=== PATIENT | female | born 1950 | race Caucasian/White ===

== ENCOUNTER 2020-04-07 07:04 | Outpatient (REF) | payer MEDICARE, SELFPAY | END 2020-04-07 07:05 | disposition home or self-care (01) | LOC: HO.LAB 07:04 | PROVIDERS: Visit Provider Internal Medicine | DX: Z20.822 Contact with and (suspected) exposure to COVID-19 (principal) | CPT/HCPCS: 36415; C9803; U0003 ==

== ENCOUNTER → 2022-07-06 12:47 | Outpatient (BNVA) | payer MEDICARE, SELFPAY | PROVIDERS: PCP Internal Medicine; Visit Provider Psychiatry & Neurology Neurology | DX: R41.89 Other symptoms and signs involving cognitive functions and awareness (principal); R46.89 Other symptoms and signs involving appearance and behavior; R47.9 Unspecified speech disturbances | CPT/HCPCS: 99202 ==

== ENCOUNTER 2022-08-20 12:42 | Outpatient (RCR) | payer MEDICARE, SELFPAY ==
--- NOTE | 2022-08-24 11:53 | MHC.SP.ADU ---
Referring provider: Mary Blackwood MD Reason for Referral: Cognitive Communication Evaluation Type of Treatment: 30871 Evaluation Speech Sound Production WITH Language Date of Plan of Treatment: 08/20/22 Onset of Symptoms/Illness: 07/10/22 Date Treatment Started: 08/24/22 Medical Diagnosis: R47.9 R41.89 R46.89 F80.1 Primary Speech Language Diagnosis: R41.841 Cognitive communication disorder Secondary Speech Language Diagnosis: History Chloeis a 72 year-old partially retired Female referred by her Neurologist with concern over memory loss and word finding issues. Pt reports this has been a slowly progressing process for the last 6 years or so. Pertinent PMH includes 2 transient ischemic attacks one in 1987, one in 2018. She is medicated for Manic Bipolar Disorder and followed by a psychiatrist. She has 4 children and 8 grandchildren who live close to her. 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 She is concerned that her memory issue will get in the way of her ability to teach the class. She is otherwise independent in self and home care activities. She reports that she collects antiques, and that her house is quite crowded because of it. She states, there are little paths you can use to get around things . Medical History: Stroke Recent Hospitalizations: No Respiratory Needs: Room Air Patient Orientation: Alert & Oriented x 4 Social History: Employment Status: Self-Employed Highest level of education obtained: Completed High School/GED Current Living Situation: Pt lives at home with family close by. Past Speech Language Therapy: None. Other Therapies Seen in Current Calendar Year: None Reported Speech, Language, Cognition difficulties: Understanding Attention Memory Cognition Speaking Problem Solving Quality of Life: She reports anxiety over her memory problems, but is otherwise still independent. Patient Stated Goal of Speech-Language Therapy: Cognitive stimulation therapy, Compensatory strategies. Assessment Tests of Cognition: RBANS Clinical Impression: Impaired Observations: Chloe completed the RBANS - Update, Form A. Her scores are reported as follows: R-BANS Update 1.) List Learning: -- Scaled Score: 4 2.) Story Memory: -- Scaled Score: 6 3.) Figure/Copy: -- Scaled Score: 5 4.) Line Orientation: -- Percentile Group: 3-9 5.) Picture Naming: -- Percentile Group: 3-9 6.) Semantic Fluency: -- Scaled Score: 4 7.) Digit Span: -- Scaled Score: 4 8.) Coding: -- Scaled Score: 3 9.) List Recall: -- Percentile Group: 3-9 10.) List Recognition: -- Percentile Group: 26-50 11.) Story Recall: -- Scaled Score: 6 12.) Figure Recall: -- Scaled Score: 6 I.) Immediate Memory: -- Index Score: 73 II.) Visuospatial/Constructional: -- Index Score: 69 III.) Language: -- Index Score: 68 IV.) Attention: -- Index Score: 56 V.) Delayed Memory: -- Index Score: 87 Total Scale Score: 63 (1st %ile) Unfortunately, these scores are well below average as compared to her age-matched peers. They are consistent with her reported symptoms of difficulty with memory and attention. This assessment would warranted a more complete Neuropsychological Battery, however the Neuropsychologist she has been followed by no longer takes her insurance. Process analysis showed some perseverative patterns when switching between subtests. For instance, when switching from List Learning to Story Recall she began listing single words from the story rather than telling it back in a narrative format. She was prompted to use the story format for her second trial and recalled twice as many items from the story. Chloe also completed the Multifactorial Memory Questionnaire (MMQ) with the following results: Satisfaction: T=26, 0.8th %ile (Significantly Below Average) Ability: T=35, 7th %ile (Significantly Below Average) Strategy: T=37, 10th %ile (Below Average) Her responses demonstrate that she is concerned about her memory, is not confident in her current abilities, and is needing to use increased supports to achieve her goals. Impressions and Recommendations Summary: Chloe demonstrated below average skills in Language and Visuospatial tasks. Difficulty with processing and attention have been negatively impacting her memory and safety. Her completion of a memory questionnaire demonstrated that these issues are also negatively impacting her quality of life and are increasing stress demands on her. Impact on Daily Function/Activity Limitations: Daily Activities: Moderate Interpersonal Interactions: Moderate Education: None Employment: Moderate Community: Moderate Prognosis for Improvement: Good Comment: Despite the progressive nature of her suspected diagnosis of dementia, her prognosis for improvement is good with increased Family support. Recommendation for Speech Therapy: Outpatient Speech Therapy Frequency/Duration: 1 x week x 12 weeks Date Range for Service Requested: 08/20/22 - 11/15/22 Time to Reassess: 3 months Range Mechanic Goals: LTG: Pt will demonstrate back use of compensatory strategies to be successful in novel, complex tasks requiring problem solving and alternating attention. Short Term Goals: Goal # : STG1: Pt will verbalize back the 5 attention types and correctly identify different layers of attention required to complete activities of daily living in >80% of opportunities with fading cues. Goal Status: New Goal Goal# : STG2: Pt will complete mazes of increasing complexity with >80% accuracy and fading cues: Goal Status: New Goal Goal # : STG3: Pt/Family will complete weekly HEP assignments with >80% accuracy to facilitate carryover of trained skills at home and in the community. Goal Status: Recommended Referrals to be Discussed with Primary Care Provider: Neurology Neuropsychological Eval Follow-up with referring provider at next scheduled visit. Patient Education: Completed: Yes Patient/Caregiver Education: Described Results of Evaluation Patient expressed understanding of evaluation Patient agrees with goals and treatment plan Patient requires further education on strategies [employer] Technician Clinican/Clinical Fellow: No Supervisory Statement: N/A Speech Language Pathologist: Geoff May M.A., CCC-[employer]IRCRAFT HYDRAULIC EQUIPMENT MECHANIC
== END 2022-09-03 11:48 | disposition still patient (30) ==
LOC: HO.SH 12:42
PROVIDERS: Visit Provider Psychiatry & Neurology Neurology
DX: F80.1 Expressive language disorder (principal); R41.89 Other symptoms and signs involving cognitive functions and awareness
CPT/HCPCS: 92523

== ENCOUNTER 2022-10-17 14:02 | Outpatient (AMB) | payer MEDICARE, SELFPAY ==
--- NOTE | 2022-10-17 14:04 | A.OFFVIS_ITS ---
Intake Vital Signs 10/17/22 14:07 BP 128/70 Blood Pressure Location Rt brachial Position Sitting Pulse 72 Pulse Source Pulse Oximeter Pulse Oximetry (%) 95 Oxygen Delivery Method Room Air Intake Visit Reasons: 3m follow up DEMENTIA-CONFIRMED Intake Note: Patient presents for 3 month follow up dementia Allergies Penicillins Allergy (Severe, Verified 10/17/22 14:05) Rash Medication List - Last Reconciled 10/17/22 by Mary Blackwood MD aspirin 81 mg PO DAILY diclofenac sodium 1% 4 grams topical BID memantine 14 mg PO DAILY nortriptyline mg PO quetiapine 200 mg PO DAILY simvastatin 40 mg PO BEDTIME trazodone 200 mg PO BEDTIME PRN HPI HPI Comments History of Present Illness Details 72y/o female comes for follow up of cognitive disorder.she is doing OK . she is seeing Dr. Campbell now and her memantine XR was increased to 14 mg qd No change in Psych medications.she still has trouble with conversations she is [place] [facility] [place] has noticed improvement in speech Previous History- SHe was getting regular neuropsych evaluation with Dr. Knowles but he is not accepting her insurance now. SHe was also seeing Dr. Cordon for her bipolar disorder. Her first neuropsych evaluation was on Jan 2022 and diagnosed with mild vascular dementia. Her bipolar disorder used to be worse with impulsive behavior during her manic phase and now its well controlled. SHe reports short term memory issues for past 4 years. 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 Her sleep study was normal 2022. she has arthritis in her knee which is affecting her gait. she used to be on abilify and now on quetiapine . she has a tele psychiatrist managing her meds. she has trouble using her cell phone she still drives [employer] Medical History Bipolar 1 disorder with moderate zayda Chronic kidney disease Cognitive and behavioral changes GERD (gastroesophageal reflux disease) Hyperlipidemia Osteoporosis Skin cancer Speech abnormality Speech delay, expressive Varicose veins of both lower extremities Surgical History H/O breast biopsy Hx of tonsillectomy Family History Father HTN (hypertension) Stroke Brother Hyperlipidemia Social History Alcohol intake: never Patient Tobacco Use Status: Never used Tobacco Physical Exam Vital Signs: Last Vital Signs Pulse 72 10/17/22 14:07 BP 128/70 10/17/22 14:07 Pulse Ox 95 10/17/22 14:07 Oxygen Delivery Method Room Air 10/17/22 14:07 Const General: cooperative and healthy appearing Nutritional Appearance: overweight Orientation/consciousness: patient oriented x3 Limitations: physical limitations Eyes Pupils: Equal, round and reactive pupils present Neuro Other: mild perioral movements expressive difficulties word finding difficulties General: patient oriented x3 and moves all extremities Cranial nerves: Yes Facial sensation intact/muscles of mastication intact, Yes Equal, round and reactive pupils present, Yes Bilaterally intact EOM present, Yes Nystagmus not present, Yes Normal facial strength present and Yes Midline tongue present Cognition (Neuro): abnormal cognition Gait exam (Neuro): Antalgic gait present Coordination: [id number] test normal Assessment & Plan Assessment & Plan (1) Cognitive and behavioral changes: Comment: vascular , ? mood related Code(s): R41.89 - Other symptoms and signs involving cognitive functions and awareness; R46.89 - Other symptoms and signs involving appearance and behavior (2) Speech abnormality: Code(s): R47.9 - Unspecified speech disturbances Plan MRI report from [facility] Speech and cognitive therapy Psychiatry follow up Check TSH Vit B 12 CBC ESR CMP Increase namenda XR 21 mg qd Orders: Orders Vitamin B12 and Folate 10/17/22 R41.89 - Other symptoms and signs involving cognitive functions and awareness, R46.89 - Other symptoms and signs involving appearance and behavior TSH reflex Free T4 10/17/22 R41.89 - Other symptoms and signs involving cognitive functions and awareness, R46.89 - Other symptoms and signs involving appearance and behavior Erythrocyte Sedimentation Rate 10/17/22 R41.89 - Other symptoms and signs involving cognitive functions and awareness, R46.89 - Other symptoms and signs involving appearance and behavior Complete Blood Count Auto Diff 10/17/22 R41.89 - Other symptoms and signs involving cognitive functions and awareness, R46.89 - Other symptoms and signs involving appearance and behavior Comprehensive Met. Panel 10/17/22 R41.89 - Other symptoms and signs involving cognitive functions and awareness, R46.89 - Other symptoms and signs involving appearance and behavior Vitamin D 25-OH (D2 and D3) 10/17/22 R41.89 - Other symptoms and signs involving cognitive functions and awareness, R46.89 - Other symptoms and signs involving appearance and behavior Medications: New memantine 21 mg PO DAILY 30 ea 6RF Coding Level of Care Code New Pt Level 4 (73745) Diagnoses Cognitive and behavioral changes R41.89; R46.89 Speech abnormality R47.9
[2022-10-17 14:07] VITALS: BP 128/70; PULSE 72; O2SAT 95
== END 2022-10-17 14:23 | disposition home or self-care (01) ==
PROVIDERS: Visit Provider Psychiatry & Neurology Neurology
DX: R41.89 Other symptoms and signs involving cognitive functions and awareness (principal); R46.89 Other symptoms and signs involving appearance and behavior; R47.9 Unspecified speech disturbances
CPT/HCPCS: 99214

== ENCOUNTER → 2022-10-17 14:02 | Outpatient (BNVA) | payer MEDICARE, SELFPAY | PROVIDERS: Visit Provider Psychiatry & Neurology Neurology | DX: R41.89 Other symptoms and signs involving cognitive functions and awareness (principal); R46.89 Other symptoms and signs involving appearance and behavior; R47.9 Unspecified speech disturbances | CPT/HCPCS: 99212 ==

== ENCOUNTER 2022-10-29 11:30 | Outpatient (RCR) | payer MEDICARE, SELFPAY | END 2022-11-16 15:50 | disposition home or self-care (01) | LOC: HO.SH 11:30 | PROVIDERS: Visit Provider Psychiatry & Neurology Neurology | DX: F80.1 Expressive language disorder (principal) | CPT/HCPCS: 92507 ==

== ENCOUNTER 2023-11-04 15:40 | Outpatient (AMB) | payer MEDICARE, SELFPAY ==
--- NOTE | 2023-11-04 15:41 | MHC.OFFVIS ---
Vital Signs 11/04/23 15:42 Height 5 ft 1.5 in Weight 204 lb 8 oz BMI 38.0 BP 138/72 Blood Pressure Location Rt brachial Position Sitting Respiration 16 Pulse 89 Pulse Source Pulse Oximeter Pulse Oximetry (%) 97 Oxygen Delivery Method Room Air Intake Visit Reasons: 6m follow up DEMENTIA - Confirmed Intake Note: Pt presents to the office for a 1 year follow up for cognitive an behavioral changes. Oven Attendant Required: No Allergies Penicillins Allergy (Severe, Verified 11/04/23 15:42) Rash HPI Comments Details: 73y/o female comes for follow up of cognitive disorder.she is doing OK . she is seeing Dr. Campbell now and her memantine XR was increased to 21 mg qd No change in Psych medications.she still has trouble with conversations she did well with speech and cognitive therapy . she feels she is better than she was 2 years ago Previous History- SHe was getting regular neuropsych evaluation with Dr. Knowles but he is not accepting her insurance now. SHe was also seeing Dr. Cordon for her bipolar disorder. Her first neuropsych evaluation was on Jan 2022 and diagnosed with mild vascular dementia. Her bipolar disorder used to be worse with impulsive behavior during her manic phase and now its well controlled. SHe reports short term memory issues for past 4 years. 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 Her sleep study was normal 2022. she has arthritis in her knee which is affecting her gait. she used to be on abilify and now on quetiapine . she has a tele psychiatrist managing her meds. she has trouble using her cell phone she still drives [employer] Medical History Speech abnormality Speech delay, expressive Cognitive and behavioral changes Hyperlipidemia Osteoporosis Chronic kidney disease Varicose veins of both lower extremities Bipolar 1 disorder with moderate zayda GERD (gastroesophageal reflux disease) Skin cancer Surgical History H/O total knee replacement Hx of tonsillectomy H/O breast biopsy Family History Father HTN (hypertension) Stroke Brother Hyperlipidemia Social History Alcohol intake: never Patient Tobacco Use Status: Never used Tobacco Physical Exam Vital Signs: Last Vital Signs Pulse 89 11/04/23 15:42 Resp 16 11/04/23 15:42 BP 138/72 11/04/23 15:42 Pulse Ox 97 11/04/23 15:42 Oxygen Delivery Method Room Air 11/04/23 15:42 BMI result Body Mass Index 38.0 Const General: cooperative and healthy appearing Nutritional Appearance: overweight Orientation/consciousness: patient oriented x3 Limitations: physical limitations Eyes Pupils: Equal, round and reactive pupils present Neuro Other: mild perioral movements speech is more fluent . General: patient oriented x3 and moves all extremities Cranial nerves: Yes Facial sensation intact/muscles of mastication intact, Yes Equal, round and reactive pupils present, Yes Bilaterally intact EOM present, Yes Nystagmus not present, Yes Normal facial strength present and Yes Midline tongue present Cognition (Neuro): abnormal cognition Gait exam (Neuro): Normal gait present Motor exam (neuro): 5/5 motor strength present throughout Coordination: [id number] test normal Assessment & Plan Assessment & Plan (1) Cognitive and behavioral changes: Comment: vascular , ? mood related Code(s): R41.89 - Other symptoms and signs involving cognitive functions and awareness; R46.89 - Other symptoms and signs involving appearance and behavior Category: Medical (2) Speech abnormality: Code(s): R47.9 - Unspecified speech disturbances Category: Medical Plan Psychiatry follow up Continue namenda XR 21 mg qd Coding Level of Care Code Est Pt Level 4 (27854) Diagnoses Cognitive and behavioral changes R41.89; R46.89 Speech abnormality R47.9
[2023-11-04 15:42] VITALS: BP 138/72; PULSE 89; RESP 16; O2SAT 97; BMI 38.0
== END 2023-11-04 16:05 | disposition home or self-care (01) ==
PROVIDERS: PCP Internal Medicine; Visit Provider Psychiatry & Neurology Neurology
DX: R41.89 Other symptoms and signs involving cognitive functions and awareness (principal); R46.89 Other symptoms and signs involving appearance and behavior; R47.9 Unspecified speech disturbances
CPT/HCPCS: 99214

== ENCOUNTER → 2023-11-04 15:40 | Outpatient (BNVA) | payer MEDICARE, SELFPAY | PROVIDERS: PCP Internal Medicine; Visit Provider Psychiatry & Neurology Neurology | DX: R41.89 Other symptoms and signs involving cognitive functions and awareness (principal); R46.89 Other symptoms and signs involving appearance and behavior; R47.9 Unspecified speech disturbances | CPT/HCPCS: 99212 ==

== ENCOUNTER 2024-10-06 14:43 | Outpatient (AMB) | payer MEDICARE, SELFPAY ==
[2024-10-06 15:09] VITALS: BP 140/76; PULSE 94; O2SAT 98; BMI 39.3
--- NOTE | 2024-10-06 15:09 | MHC.OFFVIS ---
Vital Signs 10/06/24 15:09 Height 5 ft 1.5 in Weight 211 lb 8 oz BMI 39.3 BP 140/76 H Blood Pressure Location Rt brachial Position Semi Neal's Pulse 94 Pulse Source Pulse Oximeter Pulse Oximetry (%) 98 Oxygen Delivery Method Room Air Intake Visit Reasons: Follow up- R/S from 07/01 Digital Coordinator Required: No Accompanied by: Self / Same As Patient Allergies Penicillins Allergy (Severe, Verified 11/04/23 15:42) Rash Medication List - Last Reconciled 10/06/24 by Mary Blackwood MD aspirin 81 mg PO DAILY cetirizine 10 mg PO DAILY diclofenac sodium 1% 4 grams topical BID memantine 21 mg PO BEDTIME 30 days nortriptyline mg PO omeprazole 10 mg PO DAILY quetiapine 200 mg PO DAILY simvastatin 40 mg PO BEDTIME trazodone 200 mg PO BEDTIME PRN HPI Comments Details: 74y/o female comes for follow up of cognitive disorder.she is doing OK . she is seeing Dr. Campbell now.She lost her sister 3 mths ago, her brother with parkinsons disease and has worsened and this bothers her.she is on trazadone 200mg qhs and seroquel 200mg qhs she has some word finding difficulty and some paraphasias. she did well with speech and cognitive therapy and feels she is doing OK Previous History- SHe was getting regular neuropsych evaluation with Dr. Knowles but he is not accepting her insurance now. SHe was also seeing Dr. Cordon for her bipolar disorder. Her first neuropsych evaluation was on Jan 2022 and diagnosed with mild vascular dementia. Her bipolar disorder used to be worse with impulsive behavior during her manic phase and now its well controlled. SHe reports short term memory issues for past 4 years. 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 Her sleep study was normal 2022. she has arthritis in her knee which is affecting her gait. she used to be on abilify and now on quetiapine . she has a tele psychiatrist managing her meds. she has trouble using her cell phone she still drives [facility] Medical History Speech abnormality Speech delay, expressive Cognitive and behavioral changes Hyperlipidemia Osteoporosis Chronic kidney disease Varicose veins of both lower extremities Bipolar 1 disorder with moderate zayda GERD (gastroesophageal reflux disease) Skin cancer Surgical History H/O total knee replacement Hx of tonsillectomy H/O breast biopsy Family History Father HTN (hypertension) Stroke Brother Hyperlipidemia Social History Alcohol intake: never Patient Tobacco Use Status: Never used Tobacco Physical Exam Vital Signs: Last Vital Signs Pulse 94 10/06/24 15:09 BP 140/76 H 10/06/24 15:09 Pulse Ox 98 10/06/24 15:09 Oxygen Delivery Method Room Air 10/06/24 15:09 BMI result Body Mass Index 39.3 Const General: cooperative and healthy appearing Nutritional Appearance: overweight Orientation/consciousness: patient oriented x3 Limitations: physical limitations Eyes Pupils: Equal, round and reactive pupils present Neuro General: patient oriented x3 and moves all extremities Cranial nerves: Yes Facial sensation intact/muscles of mastication intact, Yes Equal, round and reactive pupils present, Yes Bilaterally intact EOM present, Yes Nystagmus not present, Yes Normal facial strength present and Yes Midline tongue present Cognition (Neuro): abnormal cognition Gait exam (Neuro): Normal gait present Motor exam (neuro): 5/5 motor strength present throughout Coordination: [id number] test normal Assessment & Plan Assessment & Plan (1) Cognitive and behavioral changes: Comment: vascular , ? mood related Code(s): R41.89 - Other symptoms and signs involving cognitive functions and awareness; R46.89 - Other symptoms and signs involving appearance and behavior Category: Medical (2) Speech abnormality: Code(s): R47.9 - Unspecified speech disturbances Category: Medical (3) Snoring: Code(s): R06.83 - Snoring Category: Medical Plan Psychiatry follow up Increase namenda XR 28 mg qd Orders: Orders RT home sleep study Today G47.10 - Hypersomnia, unspecified, R06.83 - Snoring Medications: Changed From memantine 21 mg PO BEDTIME 30 days 30 ea 6RF To memantine 28 mg PO BEDTIME 30 ea 6RF 30 days Coding Level of Care Code Est Pt Level 4 (25509) Complex EM visit Add On G2211 Diagnoses Cognitive and behavioral changes R41.89; R46.89 Speech abnormality R47.9 Snoring R06.83
--- OUTSIDE RECORDS SUMMARY | 2024-10-06 15:28 | XMS_ITS | Clinical Summary ---
Author Organization [facility], Address [address] [place] [address] [place] [address] Phone Care Team Providers Care Medical Safety Director Name Role Phone Tashi Cooney Primary Care Provider [phone] Allergies Active Allergy Reactions Criticality Noted Date Comments Penicillins Rash Low 05/04/2019 Medications traZODone (DESYREL) 100 MG tablet Take 2 tablets by mouth at bed time Active simvastatin (ZOCOR) 20 MG tablet Take 1 tablet by mouth 1 (one) time each day 01/28/2017 Active rivastigmine (EXELON) 3 MG capsule Take 3 mg by mouth 1 (one) time each day 03/06/2018 Active raNITIdine (ZANTAC) 150 MG tablet Take 1 tablet by mouth 2 (two) times a day 11/06/2016 Active nortriptyline (PAMELOR) 50 MG capsule Take 2 capsules by mouth at bed time 08/14/2016 Active finasteride (PROSCAR) 5 MG tablet Take 0.5 tablets by mouth 1 (one) time each day 10/04/2017 Active diazePAM (VALIUM) 2 MG tablet Take 1 tablet by mouth at bed time 01/28/2017 Active calcium carbonate-linda calciferol 500-400 MG-UNIT per chewable tablet Chew 1 tablet 2 (two) times a day Active Active Problems Problem Noted Date Diagnosed Date Chronic kidney disease stage 2 05/04/2019 Hyperlipidemia 05/04/2019 Family History Medical History Relation Comments Cancer Father aunt breast Diabetes Father Hypertension Father Stroke Father Hypertension Mother Stroke Mother Relation Status Comments Father Mother Social History Tobacco Use Types Packs/Day Years Used Date Smoking Tobacco: Never Smokeless Tobacco: Never Comments Unknown Sex and Gender Information Value Date Recorded Sex Assigned at Not on file Legal Sex Female 4:36 PM EST Gender Identity Not on file Sexual Orientation Not on file Last Filed Vital Signs Vital Sign Reading Time Taken Comments Blood Pressure 130/64 05/13/2019 10:50 AM EST Pulse - - Temperature - - Respiratory Rate - - Oxygen Saturation - - Inhaled Oxygen Concentration - - Weight 90.3 kg (199 lb) 10/09/2018 12:00 PM EDT Height 160 cm (5' 3 ) 10/09/2018 12:00 PM EDT Body Mass Index 35.25 10/09/2018 12:00 PM EDT Plan of Treatment Health Maintenance Due Date Last Done Comments Breast Cancer Screening 1950 Pneumococcal Vaccine: 50+ Ye ars (1 of 2 - PCV) 1969 Colorectal Cancer Screening: Annual FOBT 1999 Colorectal Cancer Screening: Colonoscopy 1999 Colorectal Cancer Screening: Sigmoidoscopy 1999 Influenza Vaccine (#1) 2024 Hepatitis B Vaccine Aged Out No longe r eligible based on patient's age to complete this topic Insurance [facility] Care Teams Medical Safety Director Relationship Specialty Start Date End Date Tashi Cooney [address] [place] [id number] PCP - General Internal Medicine 05/13/19
--- OUTSIDE RECORDS SUMMARY | 2024-10-06 15:28 | XMS_ITS | Continuity of Care Document ---
Author Organization [facility] Main Address [address] [place] [id number] Insurance Providers Payer Plan Claims Address Claims Phone Policy Number Group Number Relation Employer Guarantor Name Guarantor Guarantor Address Guarantor Phone [facility] [id number], [place] [address] tel:[phone] Self Chloe Whitten 1950 [address] [place] [address] Problems Unknown Problems Results No Results Allergies, adverse reactions, alerts No known allergies and adverse reactions Immunizations Vaccine Route Date Status influenza 12/02/2019 Completed Covid-19 Completed influenza 05/30/2021 Completed influenza 02/15/2022 Completed Covid-19 02/15/2022 Completed Medications No administered medications reported Vital Signs Date Vital Result Comment 01/05/2022 Inhaled Oxygen Concentration 21.0 % N Temperature 98 [degF] N Oxygen Saturation 99 % N Respiratory Rate 18 /min N Heart Rate 72 /min N Blood Pressure Systolic 118 mm[Hg] N Blood Pressure Diastolic 70 mm[Hg] N Body Height 62 [in_i] N Body Weight 210 [lb_av] N Body Mass Index 38.4 kg/m2 N 08/28/2022 Inhaled Oxygen Concentration 21.0 % N Faces Pain Scale 0.0 N Temperature 98.3 [degF] N Oxygen Saturation 99 % N Respiratory Rate 20 /min N Heart Rate 72 /min N Blood Pressure Systolic 116 mm[Hg] N Blood Pressure Diastolic 70 mm[Hg] N Body Height 62 [in_i] N Body Weight 206 [lb_av] N Body Mass Index 37.7 kg/m2 N Social History Element Description Date Comment Sex assigned at Female Functional Status Category Condition Date Problem (Total score: 100) Total score: 100 12/10 Problem (Bowels: Continent) Bowels: Continent Problem (Mobility (on level surfaces): Independent (but may use any aid; for example, stick) >50 yards) Mobility (on level surfaces): Independent (but may use any aid; for example, stick) >50 yards 01/05/2022 Problem (Feeding: Independent) Feeding: Independ ent 01/05/2022 Problem (Bathing: Independen t (or in shower)) Bathing: Independent (or in shower) 01/05/2022 Problem (Stairs: Independent) Stairs: Independen t 01/05/2022 Problem (Grooming: Independe nt face/hair/teeth/ shaving (implements provided)) Grooming: Independent face/hair/teeth/ shaving (implements provided) 01/05/2022 Problem (Dressing: Independe nt (including buttons, zips, laces, etc.)) Dressing: Independent (including buttons, zips, laces, etc.) 01/05/2022 Problem (Transfers (bed to c hair and back): Independent) Transfers (bed to chair and back): Independent 01/05/2022 Problem (Toilet use: Indepen dent (on and off, dressing, wiping)) Toilet use: Independent (on and off, dressing, wiping) 01/05/2022 Problem (Bladder: Continent) Bladder: Continent 01/05/2022
== END 2024-10-06 15:24 | disposition home or self-care (01) ==
LOC: HO.HSMS 14:44
PROVIDERS: PCP Internal Medicine; Visit Provider Psychiatry & Neurology Neurology
DX: R41.89 Other symptoms and signs involving cognitive functions and awareness (principal); R46.89 Other symptoms and signs involving appearance and behavior; R47.9 Unspecified speech disturbances; R06.83 Snoring
CPT/HCPCS: 99214; G2211

== ENCOUNTER → 2024-10-06 14:43 | Outpatient (BNVA) | payer MEDICARE, SELFPAY | PROVIDERS: PCP Internal Medicine; Visit Provider Psychiatry & Neurology Neurology | DX: R06.83 Snoring (principal); R41.89 Other symptoms and signs involving cognitive functions and awareness; R46.89 Other symptoms and signs involving appearance and behavior | CPT/HCPCS: 99212 ==

== ENCOUNTER → 2024-12-09 14:53 | Outpatient (REF) | payer MEDICARE, SELFPAY ==
--- OUTSIDE RECORDS SUMMARY | 2024-12-09 16:01 | XMS_ITS | Clinical Summary ---
Author Organization [facility], Address [address] [place] [address] [place] [address] Phone Care Team Providers Care Legal Librarian Name Role Phone Tashi Cooney Primary Care Provider [phone] Allergies Active Allergy Reactions Criticality Noted Date [...] patient's age to complete this topic Insurance [facility] Care Teams Legal Librarian Relationship Specialty Start Date End Date Tashi Cooney [address] [place] [id number] PCP - General Internal Medicine 05/13/19
--- OUTSIDE RECORDS SUMMARY | 2024-12-09 16:01 | XMS_ITS | Encounter Summary ---
Author Organization [facility] Address [address] [place] [address] Care Team Providers Care [employer] Name Role Phone Eryn King MD Primary Care Provider [phone] Reason for Visit * Reason Onset Date Comments information needed/diagnosis/lidocaine Encounter Details Date Type Department Care Team ([facility] Contact Info) Description 12/03/2024 Telephone Internal Medicine - [place] [address] [place], [place] [phone] Eryn King MD [address] [place], [place] Social History Tobacco Use Types Packs/Day Years Used Date Smoking Tobacco: Never Smokeless Tobacco: Never Alcohol Use Standard Drinks/Week Comments No 0 (1 standard drink = 0.6 oz pur e alcohol) Comments No Sex and Gender Information Value Date Recorded Sex Assigned at Not on file Legal Sex Female 5:25 AM EST Gender Identity Not on file Sexual Orientation Not on file documented as of this encounter Progress Notes * Jenn Mcgrath MA - 12/09/2024 1:56 PM EDT Left a message to call back. Please put call to [phone] or remessage to [id number] * Jenn Mcgrath MA - 12/08/2024 9:34 AM EDT Left a message to call back. Please put call to [phone] or remessage to b-pool * Radha Uribe MA - 12/04/2024 3:36 PM EDT Lvm for pt on home # to give the office a call back. Please transfer to [phone]. [phone] or B side. * Artem Gaston NP - 12/03/2024 4:16 PM EDT Please inform patient of following message, she can get lidocaine patch 4% formulation [id number] from pharmacy. * Dannielle Mars MA - 12/03/2024 10:53 AM EDT PER INSURANCE denied Lidocaine patch is not covered. must have a dx of either post herpatic neuralgia cancer related neuropathy diabetic neuropathy chemo or radiation neuropathy pt can purchse OTC 4% lidocaine patch , roll on or cream aspercreme [employer] [facility] * Maya Lockhart - 12/03/2024 10:36 AM EDT Julieth from [facility] is calling about additional diagnosis for lidocaine patch, nathan fasciatisremingtons listed but they want to confirm that the pt also has cancer related pain. To process the prior auth. Artem Goldberg sent this to them with an urgent request. Please advise phone [phone] option 3 documented in this encounter Plan of Treatment Upcoming Encounters Date Type Department Care Team (Late st Contact Info) Description 12/11/2024 3:20 PM EDT Appointment Radiology Department - [address] [phone] 12/31/2024 11:00 AM EDT Consult Vascular Surgery - [place] [address] [place] [phone] Jordyn Padgett MD [address] [place] [address] 01/26/2025 4:15 PM EST Office Visit Nephrology - [address] [phone] Peewee Rodrigez MD [address] [facility] [address] [place] [phone] 02/17/2025 12:30 PM EST Office Visit Internal Medicine - [address] [phone] Eryn King MD [address] [place] [address] documented as of this encounter Visit Diagnoses Not on filedocumented in this encounter Care Teams [employer] Relationship Specialty Start Date End Date Eryn King MD [address] [place] [address] PCP - General Internal Medicine 10/14/24 documented as of this encounter
--- OUTSIDE RECORDS SUMMARY | 2024-12-09 16:01 | XMS_ITS | Clinical Summary ---
Author Organization [place] [address] [address] Building Address [address] [place] [address] Phone Care Team Providers Care Concrete Carpenter Name Role Phone Eryn King MD Primary Care Provider [phone] Allergies Active Allergy Reactions Criticality Noted Date Comments Cat Dander Runny nose 10/04/2017 Dog Dander Rash 10/04/2017 Horse Dander Rash,Swelling High 11/21/2022 Penicillins Rash Low 08/21/2005 Medications aspirin 81 mg EC tablet Take 1 Tab by mouth daily for 180 days. 0 Active fluticasone propionate (FLONASE) 50 mcg/actuation nasal spray 4 Active memantine (NAMENDA XR) 21 mg extended release capsule 3 Active nortriptyline (PAMELOR) 50 mg capsule Take 1 Capsule by mouth at bedtime. 4 Active QUEtiapine (SEROquel) 200 mg tablet Take 1 tablet (200 mg total) by mouth at bedtime. 4 Active sod sulf-pot chloride-mag sulf (Sutab) 1.479-0.188- 0.225 gram tablet TAKE 24 TABLET BY MOUTH DIRECTED 4 Active traZODone (DESYREL) 100 mg tablet 4 Active amoxicillin (AMOXIL) 500 mg tablet Take 4 tablets, p.o., once, 1 hour prior to procedure. Active calcium carbonate-linda calciferol 500 mg-10 mcg (400 unit) per chewable tablet Chew 1 tablet 1 (one) time each day. Active multivitamin with minerals tablet Take 1 tablet by mouth 1 (one) time each day. Active simvastatin (ZOCOR) 40 mg tablet TAKE 1 TABLET BY MOUTH EVERYDAY AT BEDTIME 90 tablet 1 5 Active clotrimazole (LOTRIMIN) 1 % cream Apply 1 Application topically 2 (two) times a day. APPLY TO AFFECTED AREA 5 Active loratadine (CLARITIN) 10 mg tabletIndicatio ns:Allergy, sequela Take 1 tablet (10 mg total) by mouth at bedtime. 90 tablet 1 5 Active famotidine (Pepcid) 20 mg tabletIndicatio ns:Gastroesopha geal reflux disease without esophagitis Take 1 tablet (20 mg total) by mouth at bedtime as needed for heartburn. 90 each 1 5 Active omeprazole (PriLOSEC) [address] capsuleIndicati ons:Gastroesoph ageal reflux disease without esophagitis Take 1 capsule (10 mg total) by mouth 1 (one) time each day. Do not crush or chew. 90 capsule 5 Active lidocaine (Lidoderm) 5 % patchIndication s:Plantar fasciitis, left Apply 1 patch topically 1 (one) time each day. Remove & discard patch within 12 hours or as directed by MD. 30 each 5 025 Active omeprazole (PriLOSEC) [address] capsule Take 1 capsule (10 mg total) by mouth 1 (one) time each day. Do not crush or chew. 90 capsule 5 025 Discontin ued(Reord er) loratadine (CLARITIN) 10 mg tablet TAKE 1 TABLET BY MOUTH EVERYDAY AT BEDTIME 90 tablet 1 5 025 Discontin ued(Reord er) Active Problems Problem Noted Date Diagnosed Date Class 2 obesity 12/09/2023 Urinary incontinence 12/09/2023 LVH (left ventricular hypertrophy) 04/02/2023 Overview (12/09/2023): ECHO 2023: Mild, with mild mitral and tricuspid regurge. Right lateral epicondylitis 03/28/2023 Heartburn 05/16/2022 Vascular dementia without be havioral disturbance ([facility] V24, [facility] V28) 09/18/2018 Overview (12/09/2023): Neuropsychiatry: Mild vascular dementia, stable on memantine 21 mg ER EGD (10/25/2019): Mildly abnormal due to the excessive diffuse slowing, nonspecific indicator of diffuse cerebral dysfunction. No epileptiform activity or persistent focal asymmetries are present. Neurology (01/25/17): mri brain done dec 2016 showed mild biparietal atrophy and minimal MVD. Cont healthy lifestyle Vit b12 : 536, lyme negative (12/04/16) Snoring 03/20/2018 Overview (12/09/2023): 03/2018 Home Sleep Study did not reveal sleep apnea. AHI 3; average oxygen saturation 92%. Varicose veins of legs 01/20/2017 Overview (12/09/2023): Vascular surgery (10/15/16): Varicose veins with inflammation. Compression, elevation and exercise to do venous insufficiency testing. Follow up after testing Vascular (11/19): Plan is for right-sided micro-phlebotomy and EVLT Grace surgery (01/28/17) : Doing well status post endovenous laser therapy, follow-up as needed basis US duplex venous (01/15/17): no dvt in RLE, EVTL sequela in the right sapheonous vein Assessment & Plan (07/15/2024 2:57 PM EDT): I have referred the patient to vascular surgery for bilateral lower extremity varicose veins. Recommend to keep her legs elevated. Orders: Ambulatory referral to Vascular Surgery; Future Assessment & Plan (01/15/2024 7:41 PM EST): Advised to keep legs elevated, recommend compression stockings. Referral to vascular surgery placed. 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 Cr 1.2, avoid NSAIDS, f.u in 6 momths. Will do 24 hr urine collection at that time. Assessment & Plan (01/15/2024 7:41 PM EST): Will monitor creatinine. She will avoid NSAIDs. Orders: Basic metabolic panel; Future Osteoporosis, senile 03/02/2009 Overview (12/09/2023): DXA 03/2021: improved slightly. Stay off alendronate (see below) 03/24-stopped alendronate Since more than 5 years and also has gerd Obstructive chronic bronchit is without exacerbation ([facility] V24, [facility] V28) 12/03/2006 Overview (12/09/2023): 05/15:echo nad 05/15 PFT mild obsructive disease Hyperlipidemia 2006 Overview (12/09/2023): 04/25-Normal exercise nuclear stress test without evidence of ischemia or infarction. Left ventricular systolic function normal, with ejection fraction of 70%. used to be on lipitor Assessment & Plan (07/15/2024 2:57 PM EDT): Follow low-cholesterol diet. Continue current meds and the statin. Orders: Comprehensive metabolic panel; Future Assessment & Plan (01/15/2024 7:41 PM EST): Low-cholesterol diet discussed. Will check lipid panel. Continue simvastatin. Orders: Lipid panel with reflex to direct LDL; Future Bipolar disorder ([facility] V24, [facility] V28) 08/09 Overview (12/09/2023): william Castañeda. Assessment & Plan (01/15/2024 7:41 PM EST): Continue to follow-up with psychiatry externally. Resolved Problems Problem Noted Date Diagnosed Date Resolved Date Gait instability 05/09/2023 07/29/2024 Primary osteoarthritis of right knee 12/31/2022 07/29/2024 Encounters Date Type Department Care Team Description 12/03/2024 Telephone Internal Medicine - [address] [phone] Eryn King MD 12/02/2024 2:30 PM EDT Office Visit Internal Medicine - [address] [phone] Artem Gaston NP Gastroesophageal reflux disease without esophagitis (Primary Dx); Allergy, sequela; Encounter for screening mammogram for malignant neoplasm of breast; History of basal cell carcinoma (BCC); Skin lesion; Stage 3 chronic kidney disease, unspecified whether stage 3a or 3b CKD (CMS/HCC V24, [facility] V28); Hyperlipidemia, unspecified hyperlipidemia type; Plantar fasciitis, left 11/05/2024 9:00 AM EDT Consult Orthopedic Surgery - [place] [address] [facility] [address] [place] [phone] Joseph Toney, DPM Plantar fasciitis of left foot (Primary Dx); Equinus contracture of ankle 10/12/2024 10:00 AM EDT Ancillary Procedure [facility] [address] [facility] [address] [place] [phone] Varicose veins of bilateral lower extremities with pain 10/07/2024 11:30 AM EDT Consult Bariatric Surgery - [place] [address] [facility] [address] [place] [phone] Khalida Bautista PA Hyperlipidemia, unspecified hyperlipidemia type (Primary Dx); Obesity (BMI 30-39.9); Snoring 10/01/2024 2:47 PM EDT - 10/01/2024 11:59 PM EDT Hospital Encounter Xray - [address] [phone] Discharge Disposition: Home or Self Care 10/01/2024 2:30 PM EDT Office Visit Walk-In Clinic - [address] [phone] Shine Hernandez, PEDRO Pain of left heel (Primary Dx); Plantar fasciitis of left foot 10/01/2024 Telephone [facility] Medicine - [facility] [address] [place] [phone] Tashi Berrios MD from Last 3 Months Immunizations Immunization Administration Dates Next Due H1N1 Inj Preservative Free 03/02/2009 Influenza Quadravalent, MDCK , 0.5ml, preservative free (Flucelvax) 6mo and older 01/23/2018 Influenza trivalent, 0.5mL ( Fluzone High-dose) 65yo and older 11/21/2022,01/09/2022,11/26/2019,01/28,12/06/2016 Influenza trivalent, with pr eservative (Fluzone; Afluria) 6mo and older 12/14/2015,12/23/2014,01/29/2014,01/13,12/17/2011,03/02/2009,12/05/2007 Influenza, Unspecified 01/09/2021 [place] SARS-CoV-2 COVID-19, mRNA, LNP-S, preservative free 06/06/2020,05/16/2020 Pneumococcal conjugate 13 va lent (Prevnar 13, PCV13) 2mo and older 10/04/2015 Pneumococcal polysaccharide 23 valent (Pneumovax 23) 2yo and older 11/26/2019,04/05/2014 Td Tetanus diptheria (Tdvax) 7yo and older 11/21/2022,08/21/2005 Tdap Tetanus diptheria acell ular pertussis (Boostrix; Adacel) 7yo and older 06/23/2012 Zoster Live 12/19/2011 Surgical History Surgery Date Site/Laterality Comments BREAST BIOPSY PROCEDURE: BX BREAST; PERC NEEDLE CORE W/IMAG GUID TONSILLECTOMY PROCEDURE: HISTORICAL TONSILLECTOMY OTHER SURGICAL HISTORY PROCEDURE: HISTORY OTHER; COMMENT: D & C OTHER SURGICAL HISTORY 01/10/2017 PROCEDURE: HISTORY OTHER; COMMENT: Endovenous laser therapy and microphlebectomy Medical History Medical History Date Comments Other specified personal his tory presenting hazards to health(V15.89) DX:Other specifie d personal history presenting hazards to health(V15.89); COMMENT: ?ASCUS 4 yrs. ago Bipolar disorder ([facility] V2 4, [facility] V28) 08/21/2005 DX:Bipolar disorder ([facility]); C OMMENT: william Castañeda. Hyperlipidemia 2006 DX:Hyperlipidemi a; COMMENT: 04/25-Normal exercise nuclear stress test without evidence of ischemia or infarction. Left ventricular systolic function normal, with ejection fraction of 70%. used to be on lipitor Obstructive chronic bronchit is without exacerbation (CMS/HCC V24, [facility] V28) 12/03/2006 DX:Obstructive chronic bronc hitis without exacerbation ([facility]); COMMENT: 05/15:echo nad 05/15 PFT mild obsructive disease Osteoporosis, senile 03/02/2009 DX:Osteopor osis, senile; COMMENT: OF BACK 03/24-stopped Since more than 5 years and also has gerd Adhesive capsulitis of shoulder 08/21/2005 DX:Adhesive capsulitis of shoulder CKD (chronic kidney disease) stage 2, GFR 60-89 ml/min 11/07/2016 DX:CKD (chronic kidney disea se) stage 2, GFR 60-89 ml/min; COMMENT: Nephro (10/18/17): 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 Cr 1.2, avoid NSAIDS, f.u in 6 momths. Will do 24 hr urine collection at that time. History of basal cell carcin shellie of skin 10/04/2017 DX:History of basal cell car cinoma of skin; COMMENT: 2 lesions removed from her face Mild cognitive impairment 12/09/2016 DX:Mil d cognitive impairment; COMMENT: Neurology (01/25/17): mri brain done dec 2016 showed mild biparietal atrophy and minimal MVD. Cont healthy lifestyle Vit b12 : 536, lyme negative (12/04/16) Snoring 03/20/2018 DX:Snoring; COMM ENT: 03/2018 Home Sleep Study did not reveal sleep apnea. AHI 3; average oxygen saturation 92%. Varicose veins of legs 01/20/2017 DX:Varico se veins of legs; COMMENT: Vascular surgery (10/15/16): Varicose veins with inflammation. Compression, elevation and exercise to do venous insufficiency testing. Follow up after testing Vascular (11/19): Plan is for right-sided micro-phlebotomy and EVLT Grace surgery (01/28/17) : Doing well status post endovenous laser therapy, follow-up as needed basis US duplex venous (01/15/17): no dvt* History of melanoma DX:History o f melanoma; COMMENT: 2000 Heartburn 05/16/2022 DX:Heartburn LVH (left ventricular hypertrophy) 04/02/2023 DX:LVH (left ventricular hypertrophy); COMMENT: ECHO 2023: Mild, with mild mitral and tricuspid regurge. Family History Medical History Relation Name Comments Hyperlipidemia Brother aunt Diabetes Father Hypertension Father stroke Breast cancer Father's side paternal Aunt and cousin Hypertension Mother stroke Relation Name Status Comments Brother aunt Alive 2 Father Father's side Mother parkinsons Sister Alive 4,minor ailment s Social History Tobacco Use Types Packs/Day Years Used Date Smoking Tobacco: Never Smokeless Tobacco: Never Tobacco Cessation:Counseling Given: Not Answered Alcohol Use Standard Drinks/Week Comments No 0 (1 standard drink = 0.6 oz pur e alcohol) Comments No Sex and Gender Information Value Date Recorded Sex Assigned at Not on file Legal Sex Female 5:25 AM EST Gender Identity Not on file Sexual Orientation Not on file Obstetrics History Last Filed Vital Signs Vital Sign Reading Time Taken Comments Blood Pressure 132/63 12/02/2024 2:44 PM EDT aut o cuff Pulse 76 12/02/2024 2:44 PM EDT auto cuff Temperature 36.7 C (98.1 F) 10/01/2024 2:35 PM EDT Respiratory Rate - - Oxygen Saturation 97% 10/01/2024 2:35 PM EDT Inhaled Oxygen Concentration - - Weight 98.6 kg (217 lb 4.8 oz) 12/02/2024 2:44 P M EDT Height 157.5 cm (5' 2 ) 10/07/2024 11:2 8 AM EDT Body Mass Index 39.74 10/07/2024 11:28 AM EDT Plan of Treatment Upcoming Encounters Date Type Department Care Team (Late st Contact Info) Description 12/11/2024 3:20 PM EDT Appointment Radiology Department [address] [phone] 12/31/2024 11:00 AM EDT Consult Vascular Surgery - [place] [address] [place] [address] Jordyn Padgett MD [address] [place] [phone] 01/26/2025 4:15 PM EST Office Visit Nephrology - [address] [phone] Peewee Rodrigez MD [address] [place] [address] 02/17/2025 12:30 PM EST Office Visit Internal Medicine - [address] [phone] Eryn King MD [address] [place] [address] Health Maintenance Due Date Last Done Comments Falls Risk Assessment 02/17/2022 Medicare Annual Wellness Visit 02/17/2022 Social Influencers of Health Screening 02/17/2022 Depression Screening 03/11/2024 COVID-19 Vaccine (7 - Pfizer risk 2023- season) 2024 01/09/2024, 02/15/2022, 02/13/2022, Additional history exists Influenza Vaccine (#1) 2024 , 11/21/2022, 02/15/2022, Additional history exists Breast Cancer Screening 03/29/2025 03/29/19 24, 03/27/2022, 03/24/2021, Additional history exists Colorectal Cancer Screening: FIT-DNA (Cologuard) 03/13/2026 03/13/2023, 03/13/2023 Cholesterol Screening (Lipid Panel) 12/02/2029 12/02/2024, 01/30/2024, 11/23/2022 Osteoporosis Screening (Bone Density Screening) 05/21/2033 05/22/2023, 05/22/2023, 03/16/2021, Additional history exists DTaP,Tdap,and Td Vaccines (5 - Td or Tdap) 01/08/2034 01/09/2024, 11/21/2022, 06/23/2012, Additional history exists Hepatitis C Screening Completed 06/23/2012 Pneumococcal Vaccine: 50+ Years Completed 11/26/2019, 10/04/2015, 04/05/2014 Zoster Vaccines Completed 10/31/2020, 08/10, 12/19/2011 RSV Immunization Adult Patients Completed 02/10/2023 HIB Vaccines Aged Out No longer eligi ble based on patient's age to complete this topic HPV Vaccines Aged Out No longer eligi ble based on patient's age to complete this topic Hepatitis A Vaccines Aged Out No long er eligible based on patient's age to complete this topic Hepatitis B Vaccines Aged Out No long er eligible based on patient's age to complete this topic IPV Vaccines Aged Out No longer eligi ble based on patient's age to complete this topic MMR Vaccines Aged Out No longer eligi ble based on patient's age to complete this topic Meningococcal ACWY Vaccine Aged Out N o longer eligible based on patient's age to complete this topic Meningococcal B Vaccine Aged Out No l onger eligible based on patient's age to complete this topic RSV Immunization Patients Under 20 months Aged Out No longer eligible based on patient's age to complete this topic Varicella Vaccines Aged Out No longer eligible based on patient's age to complete this topic Procedures Procedure Name Priority Date/Time Associated Diagnosis Comments CBC WITH AUTO DIFFERENTIAL Routine 12/02/2024 3:47 PM EDT Stage 3 chronic kidney disease, unspecified whether stage 3a or 3b CKD (CMS/HCC V24, CMS/HCC V28) CBC AND DIFFERENTIAL Routine 12/02/2024 3:47 PM EDT Stage 3 chronic kidney disease, unspecified whether stage 3a or 3b CKD (CMS/HCC V24, CMS/HCC V28) LIPID PANEL WITH REFLEX TO DIRECT LDL Routine 12/02/2024 3:47 PM EDT Hyperlipidemia, unspecified hyperlipidemia type COMPREHENSIVE METABOLIC PANEL Routine 12/02/2024 3:47 PM EDT Hyperlipidemia, unspecified hyperlipidemia type INJECTION TENDON OR LIGAMENT Routine 11/05/2024 9:00 AM EDT Plantar fasciitis of left foot VAS US DUPLEX LOWER EXT VENOUS INSUFFICIENCY BILATERAL Routine 10/12/2024 10:36 AM EDT Varicose veins of bilateral lower extremities with pain XR FOOT 3+ VIEWS LEFT STAT 10/01/2024 2:51 PM EDT Pain of left heel DXA BONE DENSITY STUDY 1+ SITS AXIAL SKEL Routine 05/22/2023 2:55 PM EDT Other specified disorders of bone density and structure, unspecified site [facility] SCREEN[facility] DIGITAL Routine 03/29/2023 2:15 PM EST Encounter for screening mammogram for malignant neoplasm of breast FIT-DNA Routine 03/13/2023 HEPATITIS C SCREENING Routine 06/23/2012 from Last 3 Months or Most Recently Relevant to Health Maintenance Results * Lipid panel with reflex to direct LDL (12/02/2024 3:47 PM EDT) Cholesterol 152 0 - 200 mg/dL LAB CHEMISTRY METHOD 12/02/2024 7:21 PM EDT [facility] Triglycerides 107 0 - 150 mg/dL LAB CHEMISTRY METHOD 12/02/2024 7:21 PM EDT [facility] HDL 71 >=40 mg/dL LAB CHEMISTRY METHOD 12/02/2024 7:21 PM EDT [facility] LDL Calculated 60 0 - 100 mg/dL LAB CHEMISTRY METHOD 12/02/2024 7:21 PM EDT [facility] Comment:Estimated LDL Calcul ated using equation: Total cholesterol - HDL cholesterol - (Triglycerides/5) VLDL Cholesterol Edward 21.4 mg/dL LAB CHEMISTRY METHOD 12/02/2024 7:21 PM EDT [facility] Non HDL Chol. (LDL+VLDL) 81 <145 mg/dL LAB CHEMISTRY METHOD 12/02/2024 7:21 PM EDT [facility] Chol/HDL Ratio 2.1 0.0 - 4.4 LAB CHEMISTRY METHOD 12/02/2024 7:21 PM EDT [facility] Blood Venous blood specimen / Unknown Venipuncture / Unknown 12/02/2024 3:47 PM EDT 12/02/2024 3:47 PM EDT us Artem Gaston NP LAB BLOOD ORDERABLES Final Res ult [facility] [address] [place] [address], * (ABNORMAL) CBC auto differential (12/02/2024 3:47 PM EDT) WBC 8.2 4.8 - 10.8 K/mcL LAB HEMETOLOGY METHOD 12/02/2024 6:40 PM EDT [facility] RBC 4.30 3.80 - 4.80 M/[facility] LAB HEMETOLOGY METHOD 12/02/2024 6:40 PM EDT [facility] Hemoglobin 11.6 11.5 - 16.0 g/dL LAB HEMETOLOGY METHOD 12/02/2024 6:40 PM EDT [facility] Hematocrit 37.5 35.0 - 47.0 % LAB HEMETOLOGY METHOD 12/02/2024 6:40 PM EDT [facility] MCV 88.0 79.0 - 98.0 FL LAB HEMETOLOGY METHOD 12/02/2024 6:40 PM EDT [facility] MCH 27.2 27.0 - 32.0 pcg LAB HEMETOLOGY METHOD 12/02/2024 6:40 PM EDT [facility] MCHC 30.9(L) 32.0 - 37.0 g/dL LAB HEMETOLOGY METHOD 12/02/2024 6:40 PM EDT [facility] RDW 16.3(H) 11.0 - 15.0 % LAB HEMETOLOGY METHOD 12/02/2024 6:40 PM EDT [facility] Platelets 179 130 - 400 K/mcL LAB HEMETOLOGY METHOD 12/02/2024 6:40 PM EDT [facility] MPV 10.1 7.0 - 11.0 FL LAB HEMETOLOGY METHOD 12/02/2024 6:40 PM EDT [facility] NRBC 0.0 <1.0 % LAB HEMETOLOGY METHOD [facility]/02[facility]2024 6[facility] NRBC Absolute 0.00 <0.10 K/mcL LAB HEMETOLOGY METHOD 12/02/2024 6:40 [facility] Neutrophils Relative 60.3 % LAB HEMETOLOGY METHOD 12/02/2024 6:40 PM EDT [facility] Lymphocytes Relative 21.7 % LAB HEMETOLOGY METHOD 12/02/2024 6:40 [facility] Monocytes Relative 7.7 % LAB HEMETOLOGY METHOD 12/02/2024 6:40 PM [facility] Eosinophils Relative 9.2 % LAB HEMETOLOGY METHOD 12/02/2024 6:40 PM [facility] Basophils Relative 0.5 % LAB HEMETOLOGY METHOD 12/02/2024 6:40 PM EDT [facility] Immature Granulocytes Relative 0.6 % LAB HEMETOLOGY METHOD 12/02/2024 6:40 PM [facility] Neutrophils Absolute 4.92 1.50 - 7.00 K/mcL LAB HEMETOLOGY METHOD 12/02/2024 6:40 PM [facility] Lymphocytes Absolute 1.77 1.00 - 5.00 K/mcL LAB HEMETOLOGY METHOD 12/02/2024 6:40 PM EDT [facility] Monocytes Absolute 0.63 0.20 - 1.00 K/[facility] LAB HEMETOLOGY METHOD 12/02/2024 6:40 PM EDT [facility] Eosinophils Absolute 0.75(H) 0.00 - 0.50 K/mcL LAB HEMETOLOGY METHOD 12/02/2024 6:40 PM EDT [facility] Basophils Absolute 0.04 0.00 - 0.20 K/[facility] LAB HEMETOLOGY METHOD 12/02/2024 6:40 PM EDT [facility] Immature Granulocytes Absolute 0.05(H) 0.00 - 0.03 K/[facility] LAB HEMETOLOGY METHOD 12/02/2024 6:40 PM EDT [facility] Blood Venous blood specimen / Unknown Venipuncture / Unknown 12/02/2024 3:47 PM EDT 12/02/2024 3:47 PM EDT us Artem Gaston LENS M[employer]DER LAB BLOOD ORDERABLES Final Res ult [facility] [address] [place] [address], * Comprehensive metabolic panel (12/02/2024 3:47 PM EDT) Sodium 140 133 - 145 mmol/L LAB CHEMISTRY METHOD 12/02/2024 7:21 PM EDT [facility] Potassium 4.5 3.5 - 5.5 mmol/L LAB CHEMISTRY METHOD 12/02/2024 7:21 PM EDT [facility] Chloride 105 96 - 110 mmol/L LAB CHEMISTRY METHOD 12/02/2024 7:21 PM EDT [facility] CO2 28 21 - 32 mmol/L LAB CHEMISTRY METHOD 12/02/2024 7:21 PM EDT [facility] Anion Gap 7 3 - 11 LAB CHEMISTRY METHOD 12/02/2024 7:21 PM [facility] Glucose 93 70 - 100 mg/dL LAB CHEMISTRY METHOD 12/02/2024 7:21 PM [facility] BUN 19 5 - 25 mg/dL LAB CHEMISTRY METHOD 12/02/2024 7:21 PM [facility] Creatinine 0.98 0.50 - 1.10 mg/dL LAB CHEMISTRY METHOD 12/02/2024 7:21 PM [facility] eGFR 61 >=60 mL/min/1. 73m2 LAB CHEMISTRY METHOD 12/02/2024 7:21 PM [facility] Comment:Calculation based on the Chronic Kidney Disease Epidemiology Collaboration (CKD-EPI) equation refit without adjustment for race. BUN/Creatinine Ratio 19.4 LAB CHEMISTRY METHOD 12/02/2024 7:21 PM [facility] Calcium 9.5 8.5 - 10.5 mg/dL LAB CHEMISTRY METHOD 12/02/2024 7:21 PM [facility] AST (SGOT) 26 10 - 42 unit/L LAB CHEMISTRY METHOD 12/02/2024 7:21 PM [facility] ALT (SGPT) 30 10 - 60 unit/L LAB CHEMISTRY METHOD 12/02/2024 7:21 PM [facility] Alkaline Phosphatase 73 42 - 121 unit/L LAB CHEMISTRY METHOD 12/02/2024 7:21 PM [facility] Total Protein 6.3 6.0 - 8.0 g/dL LAB CHEMISTRY METHOD 12/02/2024 7:21 PM [facility] Albumin 3.7 3.2 - 5.0 g/dL LAB CHEMISTRY METHOD 12/02/2024 7:21 PM [facility] Total Bilirubin 0.2 0.0 - 1.4 mg/dL LAB CHEMISTRY METHOD 12/02/2024 7:21 PM EDT [facility] Blood Venous blood specimen / Unknown Venipuncture / Unknown 12/02/2024 3:47 PM EDT 12/02/2024 3:47 PM EDT Artem Gaston [facility] BLOOD ORDERABLES Final Res ult [facility] [address] [place] [address], * Injection tendon or ligament (11/05/2024 9:00 AM EDT) Joseph Romano DPM - 11/05/2024 9:00 AM EDT Joseph Toney DPM 11/05/2024 12:46 PM Injection tendon or ligament Indications: pain Details: 25 G needle Medications: 0.5 mL lidocaine (PF) 1 %; 20 mg triamcinolone acetonide 40 mg/mL Informed Consent: Site: Foot ligament tendon Joseph Toney DPM IN CLINIC/BEDSIDE ORDERAB LES Final Result * Vascular US duplex lower extremity venous insufficiency bilateral (10/12/2024 10:36 AM EDT) Left GSK matthew 0.29 cm CV VAS LAB Left GSDC matthew 0.24 cm CV VAS LAB Left GSMT matthew 0.29 cm CV VAS LAB Left GSPC matthew 0.30 cm CV VAS LAB Left GSPT matthew 0.48 cm CV VAS LAB Left SFJ Diameter 0.74 cm CV VAS LAB Left SSMC matthew 0.18 cm CV VAS LAB Left SSPC matthew 0.25 cm CV VAS LAB Right GSK matthew 0.21 cm CV VAS LAB Right GSDC matthew 0.20 cm CV VAS LAB Right GSMT matthew 0.38 cm CV VAS LAB Right GSPC matthew 0.41 cm CV VAS LAB Right GSPT matthew 0.38 cm CV VAS LAB Right SFJ Diameter 0.81 cm CV VAS LAB Right SSMC matthew 0.16 cm CV VAS LAB Right SSPC matthew 0.20 cm CV VAS LAB Right GSK reflux 1,878 ms CV VAS LAB Right GSPC reflux 4,460 ms CV VAS LAB Anatomical Region Laterality Modality Vascular, Abdomen Ultrasound Narrative 10/13/2024 3:29 PM EDT RIGHT. 1. No evidence of deep vein thrombosis. 2. The saphenofemoral junction, common femoral, femoral, and popliteal veins are competent. 3. No superficial venous thrombosis. 4. No venous reflux noted in the small saphenous vein. 5. 1.9 seconds of venous reflux in the at knee greater saphenous vein and 4.5 seconds of venous reflux noted in the proximal below-knee greater saphenous vein. 6. Greater saphenous vein branches and varicosities as described below. LEFT. 1. No evidence of deep vein thrombosis. 2. The saphenofemoral junction, common femoral, femoral, and popliteal veins are competent. 3. No superficial venous thrombosis. 4. No venous reflux noted in the small saphenous vein. 5. No venous reflux noted in the greater saphenous vein. 6. Greater saphenous vein branch and varicosities as described below. Right Lower Venous No evidence of deep vein thrombosis in the common femoral, deep femoral, proximal femoral, mid femoral, distal femoral, popliteal, greater saphenous, small saphenous, posterior tibial and peroneal veins of the right leg. The vessels showed compressibility. Interrogation showed phasic and spontaneous Doppler signals. Right Venous Insufficiency Duplex The exam was performed with the patient in reverse Trendelenburg. Right saphenopopliteal junction was not identified. GSV branches/varicose veins refluxing at: Knee: 4.3 sec (0.25 cm) Upper calf: 4.4 sec (0.23 cm) These branches/varicose veins are connected and originating off from GSV at knee. Left Lower Venous No evidence of deep vein thrombosis in the common femoral, deep femoral, proximal femoral, mid femoral, distal femoral, popliteal, greater saphenous, small saphenous, posterior tibial and peroneal veins of the left leg. The vessels showed compressibility. Interrogation showed phasic and spontaneous Doppler signals. Left Venous Insufficiency Duplex The exam was performed with the patient in reverse trendelenburg. Left saphenopopliteal junction was not identified. GSV branches/varicose veins refluxing at: Lower calf: 0.5 sec (0.20 cm), originating off from GSV at lower calf. University Administrative Assistant Details A oswald scale, color and doppler analysis ultrasound was performed. During the study longitudinal and transverse views were obtained. Continuous wave doppler and pulsed wave doppler was performed. Overall the study quality was good. us Tashi Berrios MD CV VASCULAR PROCEDURES Fi nal Result * XR Foot 3+ Views Left (10/01/2024 2:51 PM EDT) Anatomical Region Laterality Modality Lower Extremities, Foot Left Radiogra phic Imaging 10/01/2024 3:00 PM EDT Impressions 10/01/2024 3:02 PM EDT Plantar spur. -------- FINAL REPORT -------- Dictated By: Sabrina Ha Dictated Date: 10/01/2024 15:00 ET Assigned Physician: Sabrina Ha Reviewed and Electronically Signed By: Sabrina Ha Signed Date: 10/01/2024 15:02 ET Workstation ID: [id number] Transcribed By: Self Edit Transcribed Date: 10/01/2024 15:00 ET Narrative 10/01/2024 3:02 PM EDT LEFT FOOT, 3 VIEWS HISTORY: Left heel pain. FINDINGS: There is a small plantar spur. There is no acute fracture, malalignment, joint effusion, soft tissue abnormality, or radiopaque foreign body. Procedure Note Sabrina Ha MD - 10/01/2024 LEFT FOOT, 3 VIEWS HISTORY: Left heel pain. FINDINGS: There is a small plantar spur. There is no acute fracture, malalignment, joint effusion, soft tissueabnormality, or radiopaque foreign body. IMPRESSION: Plantar spur. -------- FINAL REPORT -------- Dictated By: Sabrina Ha Dictated Date: 10/01/2024 15:00 ET Assigned Physician: Sabrina Ha Reviewed and Electronically Signed By: Sabrina Ha Signed Date: 10/01/2024 15:02 ET Workstation ID: [id number] Transcribed By: Self Edit Transcribed Date: 10/01/2024 15:00 ET us Shine Hernandez NP IMG XR PROCEDURES Final Resul t * DXA BONE DENSITY STUDY 1+ SITS AXIAL SKEL (05/22/2023 2:55 PM EDT) Anatomical Region Laterality Modality Bone Densitometr y 04/01/2023 10:5 4 AM EST Narrative 05/22/2023 6:31 PM EDT BONE DENSITY Lumbar Spine T-score is -1.7 (SD relative to 20-29 y/o adult) Z-score is +0.6 (SD relative to age matched peers) This is consistent with osteopenia by criteria defined by the WHO. Left Hip T-score is -0.3 Z-score is +1.7 This is normal by criteria defined by the WHO. Comparison exam(s): significant decrease in bone density of hip when compared to most recent bone density examination Confidence level is +/-95%. Impression: Based on the World Health Organization criteria, Chloe Roldan should be classified as having osteopenia. This patient has a 7.2% risk of major osteoporotic fracture and a 0.6% risk of hip fracture over the next 10 years. (World Health Organization Fracture Risk Assessment) The [facility] Department of Internal Medicine recommends using National Osteoporosis Foundation (NOF) guidelines in treatment decisions related to osteoporosis. NOF guidelines suggest considering treatment for postmenopausal women and men aged 50 or older presenting with the following: History of hip or vertebral fracture. T-score less than or equal to -2.5 (DXA) at the femoral neck, total hip, or spine, after appropriate evaluation to exclude secondary causes. Low bone mass (T-score between -1.0 and -2.5 at the femoral neck or spine) AND a 10-year probability of a hip fracture greater than or equal to 3% OR a 10-year probability of a major osteoporosis-related fracture greater than or equal to 20% based on the [place]-adapted WHO algorithm Please note that all treatment decisions require clinical judgment and consideration of individual patient factors, including patient preferences, co-morbidities, previous drug use, risk factors not captured in the FRAX model (e.g., frailty, falls, vitamin D deficiency, increased bone turnover, interval significant decline in bone density) and possible under- or over-estimation of fracture risk by FRAX. Procedure Note Margarita Snyder MD - 10/28/2023 BONE DENSITY Lumbar Spine T-score is -1.7 (SD relative to 20-29 y/o adult) Z-score is +0.6 (SD relative to age matched peers) This is consistent with osteopenia by criteria defined by the WHO. Left Hip T-score is -0.3 Z-score is +1.7 This is normal by criteria defined by the WHO. Comparison exam(s): significant decrease in bone density of hip whencompared to most recent bone density examination Confidence level is +/-95%. Impression: Based on the World Health Organization criteria, Chloe Roldan should beclassified as having osteopenia. This patient has a 7.2% risk of majorosteoporotic fracture and a 0.6% risk of hip fracture over the next 10years. (World Health Organization Fracture Risk Assessment) The [facility] Department of Internal Medicine recommendsusing National Osteoporosis Foundation (NOF) guidelines in treatmentdecisions related to osteoporosis. NOF guidelines suggest consideringtreatment for postmenopausal women and men aged 50 or older presentingwith the following: History of hip or vertebral fracture. T-score less than or equal to -2.5 (DXA) at the femoral neck, total hip,or spine, after appropriate evaluation to exclude secondary causes. Low bone mass (T-score between -1.0 and -2.5 at the femoral neck or spine)AND a 10-year probability of a hip fracture greater than or equal to 3% ORa 10-year probability of a major osteoporosis-related fracture greaterthan or equal to 20% based on the [place]-adapted WHO algorithm Please note that all treatment decisions require clinical judgment andconsideration of individual patient factors, including patientpreferences, co-morbidities, previous drug use, risk factors not capturedin the FRAX model (e.g., frailty, falls, vitamin D deficiency, increasedbone turnover, interval significant decline in bone density) and possibleunder- or over-estimation of fracture risk by FRAX. Yvonne Hathaway NP IMG DXA PROCEDURES Final Resul t * RIVER SCREENING DIGITAL (03/29/2023 2:15 PM EST) Anatomical Region Laterality Modality Mammography 03/29/2023 1:36 PM EST Narrative 03/29/2023 2:15 PM EST [facility] Diagnostic Imaging Department [address] [place] [id number] Patient: YULICHLOEBRADEN Gibson D.O.B./Age/Sex: 1950 - 73 - F Unit#: [id number] Location/Status: SPDIMAM/REG CLI Mnemonic/Ordering Site: [facility] Ordering Physician: TASHI BERRIOS MD [facility] Screening Digital - 03/29/23 - Report Status:Signed EXAM: [facility] Screening Digital EXAM DATE AND TIME: 03/29/2023 2:00 PM HISTORY: Annual screening COMPARISON: Multiple exams dating back to 2016 TECHNIQUE: Bilateral digital breast tomosynthesis was performed in the CC and MLO projections. Computer aided detection with ZAPITANO 3D 3.1 was employed. TISSUE DENSITY: b. There are scattered areas of fibroglandular density. FINDINGS: No suspicious masses, grouped microcalcifications, or areas of architectural distortion are seen. The skin and vascularity are unremarkable. IMPRESSION: Stable mammographic appearance of the breasts. No evidence of malignancy is seen. A negative mammogram in the presence of a clinically suspicious palpable abnormality does not preclude the possibility of malignancy or alter the indications for biopsy. BI-RADS: Category 1: Negative RECOMMENDATION(S): 1: Routine screening mammogram BILATERAL in 1 year. 3341F, 7025F Dictating Physician: BURT HENNESSY MD Electronically Signed by: BURT HENNESSY MD Dic Date/Time: 03/29/23 1414 Sign date/Time: 03/29/23 1415 Procedure Note Burt Hennessy MD - 10/28/2023 [facility] Diagnostic Imaging Department [address] [place] [id number] Patient: CHLOE ROLDAN Paige ShafferB./Age/Sex: 1950 - 73 - F Unit#: [id number] Location/Status: [facility] CLI Mnemonic/Ordering Site: [facility] Ordering Physician: TASHI BERRIOS MD [facility] Screening Digital - 03/29/23 - Report Status:Signed EXAM: [facility] Screening Digital EXAM DATE AND TIME: 03/29/2023 2:00 PM HISTORY: Annual screening COMPARISON: Multiple exams dating back to 2016 TECHNIQUE: Bilateral digital breast tomosynthesis was performed in the CCand MLO projections. Computer aided detection with ZAPITANO 3D 3.1was employed. TISSUE DENSITY: b. There are scattered areas of fibroglandular density. FINDINGS: No suspicious masses, grouped microcalcifications, or areas ofarchitectural distortion are seen. The skin and vascularity are unremarkable. IMPRESSION: Stable mammographic appearance of the breasts. No evidence of malignancyis seen. A negative mammogram in the presence of a clinically suspicious palpable abnormality does not preclude the possibility of malignancy or alter the indications for biopsy. BI-RADS: Category 1: Negative RECOMMENDATION(S): 1: Routine screening mammogram BILATERAL in 1 year. 3341F, 7017F Dictating Physician: BURT HENNESSY MD Electronically Signed by: BURT HENNESSY MD Dic Date/Time: 03/29/23 1414 Sign date/Time: 03/29/23 1415 us Tashi Berrios MD IMG BI PROCEDURES Final R esult * FIT-DNA (Cologuard) (03/13/2023) [facility]ologist [facility] Colorectal Cancer Screening: FIT-DNA (Cologuard) positive,a bstracted Historical Provider HEALTH MAINTENANCE Final Result * Hepatitis C Screening (06/23/2012) [facility] Hepatitis C Screening abstracted Historical Provider HEALTH MAINTENANCE Final Result from Last 3 Months or Most Recently Relevant to Health Maintenance Insurance [facility] MEDICARE ADVANTAGE Advance Directives Documents on File Type Date Recorded Patient Set Up Machinist Expl anation Health Care Decision (hx) 07/23/2023 HE ALTH CARE PROXY Health Care Decision (hx) 06/14/2023 HE ALTH CARE PROXY Care Teams Concrete Carpenter Relationship Specialty Start Date End Date Eryn King MD [address] [place] [id number] PCP - General Internal Medicine 10/14/24
== END ==
LOC: HO.SL 14:53
PROVIDERS: PCP Internal Medicine; Visit Provider Psychiatry & Neurology Neurology
DX: G47.10 Hypersomnia, unspecified (principal)
CPT/HCPCS: 95806

== ENCOUNTER → 2024-12-09 15:23 | Outpatient (BNV) | payer MEDICARE, SELFPAY | PROVIDERS: PCP Internal Medicine; Visit Provider Psychiatry & Neurology Neurology | DX: G47.10 Hypersomnia, unspecified (principal) | CPT/HCPCS: 95806 ==